=== PATIENT | male | born 1970 | race Caucasian/White ===

== ENCOUNTER 2016-10-05 23:00 | Emergency (ER) | payer BC ==
[2016-10-05 21:16] LABS: WBC (NOT ORDERED) (RFLEX) 0 (0-5)
[2016-10-05 21:26] LABS: BASOPHILS 1.1 %; BASOPHILS ABSOLUTE 0.11 10/3/uL (0.0-0.16); EOSINOPHILS 4.5 %; EOSINOPHILS ABSOLUTE 0.44 10/3/uL (0.0-0.53); ER CBC TAT 0 Hrs 12 Mins; HEMATOCRIT 34.7 % (40.0-51.0); HEMOGLOBIN 11.1 g/dL (13.6-17.8); IMMATURE GRANULOCYTES 0.2 %; IMMATURE GRANULOCYTES ABSOLUTE 0.02 10/3/uL (0.0-0.11); LYMPHOCYTES 44.6 %; LYMPHOCYTES ABSOLUTE 4.34 10/3/uL (0.67-4.30); MEAN CORPUSCULAR HEMOGLOB 27.3 pg (26.0-34.0); MEAN CORPUSCULAR VOLUME 85.5 fL (80-100); MONOCYTES 4.8 %; MONOCYTES ABSOLUTE 0.47 10/3/uL (0.21-1.20); NEUTROPHILS 44.8 %; NEUTROPHILS ABSOLUTE 4.36 10/3/uL (2.02-8.40); PLATELET COUNT 285 10/3/uL (150-400); RBC DISTRIBUTION WIDTH 14.2 % (12.0-16.0); RED CELL COUNT 4.06 10/6/uL (4.7-6.1); WHITE BLOOD CELLS 9.7 10/3/uL (4.5-10.5)
[2016-10-05 21:27] LABS: MANUAL DIFF NO %
[2016-10-05 21:28] LABS: ASCORBIC ACID (UR NOT ORDER) NEG (NEG); BILIRUBIN, URINE NEGATIVE (NEG); ER URINALYSIS TAT 0 Hrs 14 Mins; KETONE, URINE TRACE MG/DL (NEG); LEUKOCYTE ESTERASE(NOT OR NEG (NEG); NITRITE (URINE) NEG (NEG)
[2016-10-05 21:33] LABS: BUN (BLOOD UREA NITROGEN) 38 MG/DL (6-23); CALCIUM, SERUM 8.5 MG/DL (8.5-10.4); CHLORIDE, SERUM 97 MMOL/L (96-112); CO2 (CARBON DIOXIDE) 27 MMOL/L (24-34); CREATININE 1.41 MG/DL (0.70-1.30); GFR AFRICAN AMERICAN 68 ML/MIN (>=60); GFR NON AFRICAN AMERICAN 59 ML/MIN (>=60); GLUCOSE, SERUM 487 MG/DL (60-99); POTASSIUM, SERUM 4.6 MMOL/L (3.5-5.3); SODIUM, SERUM 133 MMOL/L (135-148)
[~2016-10-05 23:00] MED LIST: AMARYL2 PO; ASAB PO; CIP5 PO; COLCH6 PO; EFFEX37.5 PO; FESO4 PO; GLUCOSE TABLET PO; HUMALOG SC; HUMALOGPEN SC; IMOD PO; KLONO1 PO; LEVEMFLXPN SC; LEVEMIR; LEVEMIR PO; LEVEMIR SC; LEVSINTAB PO; LIOR10 PO; LOP25 PO; LOP50 PO; LORTAB 5 PO; LYRICA100 MG PO; NITROQUICK0.4 MG SL; NITROSTAT0.4 MG SL; NOVOLOG SC; NOVOLOGMIX SC; NOVOPEN SC; NYS500UDL PO; PLAVIX PO; PRAVAC PO; PRAVACHOL40 MG PO; PRIN2.5 PO; PRIN5 PO; PROTONIX PO; REG5 PO; SOMATAB PO; SUCR PO; TOPXL50 PO; VITD PO; ZANTAC300 MG PO; ZOFRAN4 PO
== END 2016-10-06 08:55 | disposition home or self-care (01) ==
LOC: ER 23:00
PROVIDERS: Emergency Medicine
DX: R10.9 Unspecified abdominal pain (principal); G89.29 Other chronic pain; F17.200 Nicotine dependence, unspecified, uncomplicated; I10 Essential (primary) hypertension; E11.9 Type 2 diabetes mellitus without complications; Z88.0 Allergy status to penicillin; Z91.018 Allergy to other foods; Z79.4 Long term (current) use of insulin; Z79.899 Other long term (current) drug therapy
CPT/HCPCS: 74176; 80048; 81001; 82962; 85025; 96374; 96375; 99284; A9270-GY; J1980; J2405

== ENCOUNTER 2016-11-05 18:16 | Inpatient (IN) | payer BC ==
--- NOTE | ~2016-11-05 | HP ---
History And Physical [place] [id number] [facility] [place]. [address] NAME: MIR PADILLA : 68 STATUS : ADM IN PAT#: [id number] AGE: 46 ADM/REG DATE : 11/05/16 MR#: [id number] REPORT SERV DATE: 11/06/16 DICTATED BY: GLORIA OCONNELL DATE: 11/05/16 REPORT STATUS : Draft TRANSCRIBED BY: MODSivakumar DATE: 11/05/16 DATE OF ADMISSION: 11/05/2016 CHIEF COMPLAINT: Intractable nausea and vomiting. HISTORY OF PRESENT ILLNESS: This is a 46-year-old male with a past medical history of type 1 diabetes, of which the patient states that his blood sugars have been greater than 400 for the past several days as well as has had intractable nausea and vomiting for three days and has developed some epigastric discomfort secondary to his vomiting. He denies any hematemesis, but does have some myalgias and chills, positive cough, intermittent shortness of breath, but denies chest pain. The patient states that he has been compliant with his diabetic medication. He recently moved up to this area. He is currently supposed to see a new primary care, Grisel Mendez, and scheduled to see this physician this week. Also, he is to follow up with hardboard coating machine operator, Wendy Marshall. The patient describes some mild dysuria, but has not had any urine output since being in the ER. He was seen in the ER by Dr. Lg Junior, ER physician, who has given the patient 2 L bolusing of IV fluid and has started on an insulin drip. Also, the patient has received some antiemetics. Upon arrival to the ER, the patient's blood sugar was noted to be 653 with signs of dehydration. REVIEW OF SYSTEMS: Please refer to HPI. PAST MEDICAL HISTORY: Type 1 diabetes, hepatitis C, pancreatitis, anxiety, depression, coronary artery disease, status post DE, cardiomyopathy with ejection fraction of 40%, renal stones, and diabetic neuropathy. PAST SURGICAL HISTORY: Lithotripsy and cholecystectomy. SOCIAL HISTORY: Positive tobacco abuse for approximately 45 years. Denies any alcohol or illicit drugs. His is currently at bedside. The patient uses a wheelchair at home for severe diabetic neuropathy and using a knee brace for his right lower extremity. FAMILY HISTORY: COPD and type 2 diabetes. ALLERGIES: TO PENICILLIN AND LEMON. HOME MEDICATIONS: Plavix 75 mg p.o. daily, glucagon p.r.n., ibuprofen p.r.n., Levemir 18 units subcu b.i.d., Humalog, sliding scale insulin, lisinopril 2.5 mg p.o. daily, metoprolol succinate 25 mg p.o. q.a.m., nitroglycerin sublingual, Pravachol 40 mg p.o. q.h.s., Zantac 300 mg p.o. q.a.m. PHYSICAL EXAMINATION: VITAL SIGNS: Temp of 98.7, blood pressure 100/62 with a pulse of 93, respiration of 19, and saturating 98% on room air. GENERAL: The patient is alert and oriented x3. HEENT: Pupils equal, round, and reactive to light. Extraocular muscles are intact. History And Physical [address] [address] NAME: MIR PADILLA : 68 STATUS : ADM IN [facility]#: [id number] AGE: 46 ADM/REG DATE : 11/05/16 MR#: [id number] REPORT SERV DATE: 11/06/16 DICTATED BY: GLORIA OCONNELL DATE: 11/05/16 REPORT STATUS : Draft TRANSCRIBED BY: PABLO DATE: 11/05/16 Anicteric sclerae. Dry mucous membranes. CARDIOVASCULAR: S1, S2. Regular rate and rhythm. No murmurs, rubs, or gallops. No JVD. RESPIRATORY: Clear to auscultation bilaterally with no wheezes or crackles. No signs of tachypnea. ABDOMEN: Positive bowel sounds. Soft. Mild tenderness to palpation in epigastric area. No rebound. No abdominal distention. EXTREMITIES: 2+ pulse, warm extremities. Knee brace to the right lower extremity. NEURO: Cranial nerves II through XII grossly intact. Moves all four extremities. Some limitation secondary to abrasion in the right lower extremity. IMAGING: Chest x-ray showing no acute infiltrate. LABORATORY DATA: ABG with a pH of 7.36, pCO2 of 41, pO2 of 80. Positive acetone. Sodium 128, potassium 5, chloride 87, bicarb of 26, BUN of 53, creatinine of 1.69 with a glucose of 653. Anion gap of 15. White count of 8.6, hemoglobin of 12.5 with a platelet count 158. Influenza swab is negative. ASSESSMENT AND PLAN: 1. Diabetic ketoacidosis. 2. Intractable nausea and vomiting. 3. Pseudohyponatremia. 4. Hypomagnesemia. 5. The patient will be admitted to ICU due to no beds in IMCU and will be admitted for IMCU overflow. He will continue with insulin drip as well as serial labs and electrolyte management considering the positive ketones, positive anion gap with a blood glucose greater than 600, I recommend the patient to be in IMCU/ICU setting. This has been discussed with Dr. Stovall, Critical Care on-call, who will accept the patient overnight into Critical Care/ICU and manage. VIDHI/MODL Gloria Oconnell M.D. / [id number] CC: Madelin Stovall M.D.
--- NOTE | ~2016-11-05 | DS ---
Discharge Summary [facility] [address] [facility] [place]. [address] NAME: MIR PADILLA : 68 STATUS : DIS IN PAT#: [id number] AGE: 46 ADM/REG DATE : 11/05/16 MR#: [id number] REPORT SERV DATE: 11/10/16 DICTATED BY: LARRY GALLOWAY DATE: 11/09/16 REPORT STATUS : Draft TRANSCRIBED BY: MODL DATE: 11/09/16 ADMISSION DATE: 11/05/2016 DISCHARGE DATE: 11/09/2016 The patient is a 46-year-old male with a history of type 1 diabetes, hepatitis C, pancreatitis, heart failure with reduced EF, and diabetic neuropathy who presented to the emergency room with a complaint of intractable nausea and vomiting. For further details please refer to H and P dictated by Dr. Gomez on 11/06/2016. HOSPITAL COURSE: Upon presentation to the emergency room the patient was diagnosed and admitted for DKA. The patient was sent to the ICU for further management. The patient was in the ICU over night. The patient was started on an insulin drip, also blood glucose controlled to normal limits. The patient was transferred to the regular floor. On the regular floor, the patient remained hemodynamically stable; however, the high blood pressure remained elevated. Upon review of his chart, the patient meet criteria for a hyperosmolar hyperglycemic state. Based on his presenting pH, presenting bicarb, and his glucose level, ketones were not ordered by emergency room physicians. While in the ICU the patient was taken off insulin drip, placed on insulin regimen. While on the floor his insulin regimen has been titrated with good control of his hyperglycemia. Also upon my evaluation, yesterday the patient complained of posttussive emesis, stating that he has several episodes of paroxysms of cough and the patient is vomiting, this was concerning for pertussis. Sputum sample was obtained; however, no significant finding was noted. Chest x-ray, given his significant smoking history the patient reported a smoking history of over 60-pack year. CT scan was obtained to evaluate for any malignancy per guidelines. The patient's CT came back with no significant concern. Also upon my interview, the patient reported that while at home he has poor diet secondary to his inability to afford food. However, the patient is currently stable, his presenting concerns have resolved. This morning patient was noted to be tachycardic likely due to volume depletion, the patient will be placed on IV fluids. Given resolution of his presenting symptoms the patient will be discharged home to follow up with primary care physician. Plan has been discussed with the patient, who voices understanding and is agreeable with this plan. DISCHARGE DIAGNOSES: 1. Hyperosmolar hyperglycemic state. 2. Diabetes type 1. 3. Hypertension. 4. Acute kidney injury. 5. Posttussive emesis. 6. Diabetic neuropathy. 7. Thrombocytosis. 8. Leukocytosis. DISCHARGE PHYSICAL EXAMINATION: GENERAL: The patient lying in bed, in no acute distress. Appears stated age. HEENT: Normocephalic and atraumatic. Extraocular motors intact. Moist oral mucosa. Anicteric sclerae. No conjunctival injection. Pupils are reactive to light and Discharge Summary [address] [place]. [address] NAME: MIR PADILLA : 68 STATUS : DIS IN [facility]#: [id number] AGE: 46 ADM/REG DATE : 11/05/16 MR#: [id number] REPORT SERV DATE: 11/10/16 DICTATED BY: LARRY GALLOWAY DATE: 11/09/16 REPORT STATUS : Draft TRANSCRIBED BY: PABLO DATE: 11/09/16 accommodation. NECK: Trachea midline and symmetric. No JVD. No thyromegaly. No lymphadenopathy noted. CHEST: Nontender to palpation. CARDIOVASCULAR: Tachy. Regular rhythm. No murmurs, rubs, or gallops. LUNGS: Clear to auscultation bilaterally. The patient had normal respiratory effort. ABDOMEN: Soft, flat, nontender, and nondistended. EXTREMITIES: No cyanosis, no clubbing, no edema. NEURO: Alert and oriented x3. Of note, the patient did appear somewhat emaciated. IMAGING: CT chest without contrast. Impression: Segmental left lower lobe consolidation consistent with pneumonia or aspiration in proper clinical setting. Mild involvement suspected in the posterior basal left and potentially lateral basal right lower lobe. DISPOSITION: The patient will be discharged home to follow with primary care physician. DIET: Diabetic diet. ACTIVITY: As tolerated. Greater than 30 minutes were spent providing counseling and coordinating discharge, dictation of note, medication reconciliation, writing prescriptions. JIMMY Larry Galloway MD / [id number] CC: Larry Galloway MD
[2016-11-05 18:19] LABS: INFLUENZA A SCREEN NEGATIVE (NEGATIVE); INFLUENZA B SCREEN NEGATIVE (NEGATIVE)
[2016-11-05 18:34] LABS: BASOPHILS 0.6 %; BASOPHILS ABSOLUTE 0.05 10/3/uL (0.0-0.16); EOSINOPHILS 0.9 %; EOSINOPHILS ABSOLUTE 0.08 10/3/uL (0.0-0.53); HEMATOCRIT 37.7 % (40.0-51.0); HEMOGLOBIN 12.5 g/dL (13.6-17.8); IMMATURE GRANULOCYTES 0.2 %; IMMATURE GRANULOCYTES ABSOLUTE 0.02 10/3/uL (0.0-0.11); LYMPHOCYTES 35.5 %; LYMPHOCYTES ABSOLUTE 3.06 10/3/uL (0.67-4.30); MEAN CORPUS HGB CONC 33.2 g/dL (32.0-36.0); MEAN CORPUSCULAR HEMOGLOB 28.3 pg (26.0-34.0); MEAN CORPUSCULAR VOLUME 85.5 fL (80-100); MEAN PLATELET VOLUME 9.1 fL (9.2-13.0); MONOCYTES 6.1 %; MONOCYTES ABSOLUTE 0.53 10/3/uL (0.21-1.20); NEUTROPHILS 56.7 %; NEUTROPHILS ABSOLUTE 4.88 10/3/uL (2.02-8.40); RBC DISTRIBUTION WIDTH 14.3 % (12.0-16.0); RED CELL COUNT 4.41 10/6/uL (4.7-6.1); WHITE BLOOD CELLS 8.6 10/3/uL (4.5-10.5)
[2016-11-05 18:37] LABS: MANUAL DIFF NO %; PLATELET COUNT 158 10/3/uL (150-400)
[2016-11-05 18:41] LABS: ACETONE SMALL
[2016-11-05 18:44] LABS: INTERNATIONAL NORMAL RATI 0.9 UNITS (-); PARTIAL THROMBO TIME 24.5 SEC (22.5-37.2); PROTIME (NOT ORD) 12.2 SEC (12.0-14.5)
[2016-11-05 18:52] LABS: CALCIUM, SERUM 9.1 MG/DL (8.5-10.4); CHEST PAIN PROFILE TAT 0 Hrs 22 Mins; CO2 (CARBON DIOXIDE) 26 MMOL/L (24-34); CREATININE 1.69 MG/DL (0.70-1.30); GFR AFRICAN AMERICAN 55 ML/MIN (>=60); GFR NON AFRICAN AMERICAN 47 ML/MIN (>=60); SODIUM, SERUM 128 MMOL/L (135-148); TROPONIN I <0.02 NG/ML (<0.05)
[2016-11-05 18:53] LABS: BUN (BLOOD UREA NITROGEN) 53 MG/DL (6-23); CHLORIDE, SERUM 87 MMOL/L (96-112); GLUCOSE, SERUM 653 MG/DL (60-99)
[2016-11-05] MEDS ORDERED: HUMALOG SC (19:31)
[2016-11-05] MEDS ORDERED: LEVEMIR SC (19:31)
[2016-11-05] MEDS ORDERED: TOPXL25 PO (19:31)
[2016-11-05] MEDS ORDERED: ZANTAC300 MG PO (19:32)
[2016-11-05] MEDS ORDERED: PLAVIX PO (19:32)
[2016-11-05] MEDS ORDERED: PRAVACHOL40 MG PO (19:33)
[2016-11-05] MEDS ORDERED: NITROSTAT0.4 MG SL (19:33)
[2016-11-05] MEDS ORDERED: GLUCAGON IM (19:34)
[2016-11-05] MEDS ORDERED: IBU-200200 MG PO (19:35)
[2016-11-05] MEDS ORDERED: PRIN2.5 PO (19:35)
[2016-11-05 20:54] LABS: ALLENS TEST Pos; BE (BASE EXCESS) -2.4 MEQ/L (0 +/- 2.5); CARBOXYHEMOGLOBIN 3.1 % (0-3); HCO3 (ACTUAL BICARBONATE) 22.9 MEQ/L (23-27); HEMOBLOGIN CONTENT 12.5 G/DL (14-18); INSTRUMENT SERIAL # 8087; METHEMOGLOBIN 0.1 % (0-3); O2 CONTENT 16.1 VOL% (18-24); OPERATOR ID 17589; PCO2 (CO2 TENSION) 41 MMHG (35-45); PO2 (O2 TENSION) 80 MMHG (79-93); SAMPLE Arterial; pH 7.36 (7.37-7.43)
[2016-11-06 03:42] LABS: BASOPHILS 0.4 %; BASOPHILS ABSOLUTE 0.05 10/3/uL (0.0-0.16); EOSINOPHILS 1.8 %; EOSINOPHILS ABSOLUTE 0.21 10/3/uL (0.0-0.53); HEMATOCRIT 36.4 % (40.0-51.0); HEMOGLOBIN 12.1 g/dL (13.6-17.8); IMMATURE GRANULOCYTES 0.2 %; IMMATURE GRANULOCYTES ABSOLUTE 0.02 10/3/uL (0.0-0.11); LYMPHOCYTES 41.7 %; MANUAL DIFF NO %; MEAN CORPUS HGB CONC 33.2 g/dL (32.0-36.0); MEAN CORPUSCULAR HEMOGLOB 27.9 pg (26.0-34.0); MEAN CORPUSCULAR VOLUME 84.1 fL (80-100); MONOCYTES 6.5 %; MONOCYTES ABSOLUTE 0.76 10/3/uL (0.21-1.20); NEUTROPHILS 49.4 %; NEUTROPHILS ABSOLUTE 5.81 10/3/uL (2.02-8.40); PLATELET COUNT 170 10/3/uL (150-400); RBC DISTRIBUTION WIDTH 14.2 % (12.0-16.0); RED CELL COUNT 4.33 10/6/uL (4.7-6.1); WHITE BLOOD CELLS 11.8 10/3/uL (4.5-10.5)
[2016-11-06 03:59] LABS: ALBUMIN 2.9 G/DL (3.5-5.0); ALKALINE PHOSPHATASE 125 U/L (45-117); CALCIUM, SERUM 8.6 MG/DL (8.5-10.4); CO2 (CARBON DIOXIDE) 30 MMOL/L (24-34); CPK 44 U/L (0-200); SGOT(AST) 56 U/L (5-40); SGPT(ALT) 55 U/L (5-65); TOTAL BILIRUBIN 0.3 MG/DL (0-1.2); TOTAL PROTEIN 6.4 G/DL (6.0-8.5); TROPONIN I <0.02 NG/ML (<0.05)
[2016-11-06 04:02] LABS: ACETAMINOPHEN LEVEL (TYLENOL) < 2.0 MCG/ML (10.0-20.0); ALCOHOL < 10 MG/DL (0); BUN (BLOOD UREA NITROGEN) 38 MG/DL (6-23); CHLORIDE, SERUM 99 MMOL/L (96-112); CHOLESTEROL 112 MG/DL (< 200); CK-MB 0.9 NG/ML; CREATININE 1.12 MG/DL (0.70-1.30); DIRECT BILIRUBIN < 0.1 MG/DL (0.0-0.4); GFR AFRICAN AMERICAN 90 ML/MIN (>=60); GFR NON AFRICAN AMERICAN 78 ML/MIN (>=60); GLUCOSE, SERUM 81 MG/DL (60-99); HDL CHOLESTEROL 55 MG/DL (> 39); INDIRECT BILIRUBIN(NOT ORDER) 0.2 MG/DL (0.1-0.9); LDL CHOLESTEROL 14 MG/DL (< 130); NON-HDL CHOLESTEROL 57 MG/DL (< 160); POTASSIUM, SERUM 3.4 MMOL/L (3.5-5.3); SALICYLATE < 1.7 MG/DL (-); SODIUM, SERUM 135 MMOL/L (135-148); TRIGLYCERIDE 219 MG/DL (< 150)
[2016-11-06 04:03] LABS: ASCORBIC ACID (UR NOT ORDER) NEG (NEG); BILIRUBIN, URINE NEGATIVE (NEG); KETONE, URINE TRACE MG/DL (NEG); LEUKOCYTE ESTERASE(NOT OR NEG (NEG); WBC (NOT ORDERED) (RFLEX) < 1 (0-5)
[2016-11-06 04:32] LABS: CREATININE (RANDOM URINE) 45.9 MG/DL; MICROALBUMIN, RANDOM URINE 32.3 MG/DL; MICROALBUMIN/CREATININE RATIO 703 MCG/MG (<30)
[2016-11-06 05:04] LABS: AMPHETAMINES (NOT ORD) NEG (NEG); BENZODIAZEPINES (NOT ORD) NEG (NEG); CANNABINOIDS (THC) POS (NEG); COCAINE (NOT ORDERED) NEG (NEG); PHENCYCLIDINE(PCP) NEG (NEG)
[2016-11-06 05:05] LABS: BARBITURATES (NOT ORDERED NEG (NEG); OPIATES NEG (NEG); TRICYCLICS NEG (NEG)
[2016-11-06 06:14] LABS: PHOSPHORUS, SERUM 2.6 MG/DL (2.5-4.5)
[2016-11-06 10:43] LABS: CALCIUM, SERUM 8.5 MG/DL (8.5-10.4); CHLORIDE, SERUM 98 MMOL/L (96-112); CO2 (CARBON DIOXIDE) 26 MMOL/L (24-34); CPK 45 U/L (0-200); CREATININE 1.24 MG/DL (0.70-1.30); GFR AFRICAN AMERICAN 80 ML/MIN (>=60); GFR NON AFRICAN AMERICAN 69 ML/MIN (>=60); PHOSPHORUS, SERUM 2.1 MG/DL (2.5-4.5); SODIUM, SERUM 135 MMOL/L (135-148); TROPONIN I <0.02 NG/ML (<0.05)
[2016-11-06 10:44] LABS: BUN (BLOOD UREA NITROGEN) 33 MG/DL (6-23); CK-MB 0.6 NG/ML; GLUCOSE, SERUM 277 MG/DL (60-99); POTASSIUM, SERUM 4.5 MMOL/L (3.5-5.3)
[2016-11-06 18:20] LABS: BASOPHILS 0.2 %; BASOPHILS ABSOLUTE 0.02 10/3/uL (0.0-0.16); EOSINOPHILS 0.4 %; EOSINOPHILS ABSOLUTE 0.04 10/3/uL (0.0-0.53); HEMATOCRIT 33.8 % (40.0-51.0); HEMOGLOBIN 10.8 g/dL (13.6-17.8); IMMATURE GRANULOCYTES 0.2 %; IMMATURE GRANULOCYTES ABSOLUTE 0.02 10/3/uL (0.0-0.11); LYMPHOCYTES 14.9 %; LYMPHOCYTES ABSOLUTE 1.56 10/3/uL (0.67-4.30); MANUAL DIFF NO %; MEAN CORPUSCULAR HEMOGLOB 27.4 pg (26.0-34.0); MEAN CORPUSCULAR VOLUME 85.8 fL (80-100); MEAN PLATELET VOLUME 8.8 fL (9.2-13.0); MONOCYTES ABSOLUTE 0.42 10/3/uL (0.21-1.20); NEUTROPHILS 80.3 %; NEUTROPHILS ABSOLUTE 8.43 10/3/uL (2.02-8.40); PLATELET COUNT 147 10/3/uL (150-400); RBC DISTRIBUTION WIDTH 14.4 % (12.0-16.0); RED CELL COUNT 3.94 10/6/uL (4.7-6.1); WHITE BLOOD CELLS 10.5 10/3/uL (4.5-10.5)
[2016-11-06 18:36] LABS: CALCIUM, SERUM 8.1 MG/DL (8.5-10.4); CHLORIDE, SERUM 97 MMOL/L (96-112); CO2 (CARBON DIOXIDE) 26 MMOL/L (24-34); CREATININE 1.51 MG/DL (0.70-1.30); GFR AFRICAN AMERICAN 63 ML/MIN (>=60); GFR NON AFRICAN AMERICAN 54 ML/MIN (>=60); GLUCOSE, SERUM 242 MG/DL (60-99); PHOSPHORUS, SERUM 2.6 MG/DL (2.5-4.5); POTASSIUM, SERUM 3.8 MMOL/L (3.5-5.3); SODIUM, SERUM 135 MMOL/L (135-148)
[2016-11-06 18:40] LABS: BUN (BLOOD UREA NITROGEN) 27 MG/DL (6-23)
[2016-11-07 06:36] LABS: BASOPHILS 0.2 %; BASOPHILS ABSOLUTE 0.02 10/3/uL (0.0-0.16); EOSINOPHILS 0.6 %; EOSINOPHILS ABSOLUTE 0.07 10/3/uL (0.0-0.53); HEMATOCRIT 32.7 % (40.0-51.0); HEMOGLOBIN 10.9 g/dL (13.6-17.8); IMMATURE GRANULOCYTES 0.2 %; IMMATURE GRANULOCYTES ABSOLUTE 0.02 10/3/uL (0.0-0.11); LYMPHOCYTES 28.3 %; LYMPHOCYTES ABSOLUTE 3.31 10/3/uL (0.67-4.30); MEAN CORPUS HGB CONC 33.3 g/dL (32.0-36.0); MEAN CORPUSCULAR HEMOGLOB 28.3 pg (26.0-34.0); MEAN CORPUSCULAR VOLUME 84.9 fL (80-100); MEAN PLATELET VOLUME 8.9 fL (9.2-13.0); MONOCYTES 4.4 %; MONOCYTES ABSOLUTE 0.52 10/3/uL (0.21-1.20); NEUTROPHILS 66.3 %; NEUTROPHILS ABSOLUTE 7.76 10/3/uL (2.02-8.40); PLATELET COUNT 149 10/3/uL (150-400); RBC DISTRIBUTION WIDTH 14.3 % (12.0-16.0); RED CELL COUNT 3.85 10/6/uL (4.7-6.1); WHITE BLOOD CELLS 11.7 10/3/uL (4.5-10.5)
[2016-11-07 06:38] LABS: MANUAL DIFF NO %
[2016-11-07 06:54] LABS: CALCIUM, SERUM 8.8 MG/DL (8.5-10.4); CHLORIDE, SERUM 99 MMOL/L (96-112); CREATININE 1.05 MG/DL (0.70-1.30); FREE T4 1.49 NG/DL (0.76-1.46); GFR AFRICAN AMERICAN 98 ML/MIN (>=60); GFR NON AFRICAN AMERICAN 84 ML/MIN (>=60); PHOSPHORUS, SERUM 2.6 MG/DL (2.5-4.5); POTASSIUM, SERUM 4.2 MMOL/L (3.5-5.3); SODIUM, SERUM 138 MMOL/L (135-148)
[2016-11-07 06:55] LABS: BUN (BLOOD UREA NITROGEN) 19 MG/DL (6-23); CO2 (CARBON DIOXIDE) 32 MMOL/L (24-34); GLUCOSE, SERUM 169 MG/DL (60-99); ULTRASENSITIVE TSH 0.521 MCIU/ML (0.358-3.740)
[2016-11-08 06:21] LABS: BASOPHILS 0.3 %; BASOPHILS ABSOLUTE 0.03 10/3/uL (0.0-0.16); EOSINOPHILS 2.3 %; HEMATOCRIT 35.2 % (40.0-51.0); HEMOGLOBIN 11.4 g/dL (13.6-17.8); IMMATURE GRANULOCYTES 0.1 %; IMMATURE GRANULOCYTES ABSOLUTE 0.01 10/3/uL (0.0-0.11); LYMPHOCYTES 28.4 %; LYMPHOCYTES ABSOLUTE 2.49 10/3/uL (0.67-4.30); MEAN CORPUS HGB CONC 32.4 g/dL (32.0-36.0); MEAN CORPUSCULAR HEMOGLOB 27.7 pg (26.0-34.0); MEAN CORPUSCULAR VOLUME 85.6 fL (80-100); MEAN PLATELET VOLUME 8.7 fL (9.2-13.0); MONOCYTES 4.8 %; MONOCYTES ABSOLUTE 0.42 10/3/uL (0.21-1.20); NEUTROPHILS 64.1 %; NEUTROPHILS ABSOLUTE 5.62 10/3/uL (2.02-8.40); PLATELET COUNT 123 10/3/uL (150-400); RBC DISTRIBUTION WIDTH 14.2 % (12.0-16.0); RED CELL COUNT 4.11 10/6/uL (4.7-6.1); WHITE BLOOD CELLS 8.8 10/3/uL (4.5-10.5)
[2016-11-08 06:24] LABS: MANUAL DIFF NO %
[2016-11-08 06:39] LABS: A/G RATIO 0.7 (0.7-1.9); ALBUMIN 2.7 G/DL (3.5-5.0); ALKALINE PHOSPHATASE 117 U/L (45-117); BUN (BLOOD UREA NITROGEN) 14 MG/DL (6-23); CALCIUM, SERUM 8.7 MG/DL (8.5-10.4); CHLORIDE, SERUM 99 MMOL/L (96-112); CO2 (CARBON DIOXIDE) 31 MMOL/L (24-34); CREATININE 0.98 MG/DL (0.70-1.30); GFR AFRICAN AMERICAN 106 ML/MIN (>=60); GFR NON AFRICAN AMERICAN 91 ML/MIN (>=60); GLOBULIN 3.8 G/DL (2.5-4.1); GLUCOSE, SERUM 111 MG/DL (60-99); POTASSIUM, SERUM 4.1 MMOL/L (3.5-5.3); SGOT(AST) 34 U/L (5-40); SGPT(ALT) 35 U/L (5-65); SODIUM, SERUM 137 MMOL/L (135-148); TOTAL BILIRUBIN 0.4 MG/DL (0-1.2); TOTAL PROTEIN 6.5 G/DL (6.0-8.5)
[2016-11-09 05:19] LABS: BASOPHILS 0.4 %; BASOPHILS ABSOLUTE 0.03 10/3/uL (0.0-0.16); EOSINOPHILS 3.4 %; EOSINOPHILS ABSOLUTE 0.28 10/3/uL (0.0-0.53); HEMATOCRIT 34.7 % (40.0-51.0); HEMOGLOBIN 11.3 g/dL (13.6-17.8); IMMATURE GRANULOCYTES 0.2 %; IMMATURE GRANULOCYTES ABSOLUTE 0.02 10/3/uL (0.0-0.11); LYMPHOCYTES 38.4 %; LYMPHOCYTES ABSOLUTE 3.12 10/3/uL (0.67-4.30); MEAN CORPUS HGB CONC 32.6 g/dL (32.0-36.0); MEAN CORPUSCULAR HEMOGLOB 27.9 pg (26.0-34.0); MEAN CORPUSCULAR VOLUME 85.7 fL (80-100); MEAN PLATELET VOLUME 9.7 fL (9.2-13.0); MONOCYTES 6.4 %; MONOCYTES ABSOLUTE 0.52 10/3/uL (0.21-1.20); NEUTROPHILS 51.2 %; NEUTROPHILS ABSOLUTE 4.16 10/3/uL (2.02-8.40); PLATELET COUNT 136 10/3/uL (150-400); RBC DISTRIBUTION WIDTH 14.4 % (12.0-16.0); RED CELL COUNT 4.05 10/6/uL (4.7-6.1); WHITE BLOOD CELLS 8.1 10/3/uL (4.5-10.5)
[2016-11-09 05:38] LABS: A/G RATIO 0.7 (0.7-1.9); ALBUMIN 2.6 G/DL (3.5-5.0); ALKALINE PHOSPHATASE 113 U/L (45-117); BUN (BLOOD UREA NITROGEN) 16 MG/DL (6-23); CALCIUM, SERUM 9.2 MG/DL (8.5-10.4); CHLORIDE, SERUM 98 MMOL/L (96-112); CO2 (CARBON DIOXIDE) 31 MMOL/L (24-34); CREATININE 0.93 MG/DL (0.70-1.30); GFR AFRICAN AMERICAN 113 ML/MIN (>=60); GFR NON AFRICAN AMERICAN 97 ML/MIN (>=60); GLOBULIN 3.9 G/DL (2.5-4.1); GLUCOSE, SERUM 110 MG/DL (60-99); POTASSIUM, SERUM 3.8 MMOL/L (3.5-5.3); SGOT(AST) 45 U/L (5-40); SGPT(ALT) 37 U/L (5-65); SODIUM, SERUM 138 MMOL/L (135-148); TOTAL BILIRUBIN 0.4 MG/DL (0-1.2); TOTAL PROTEIN 6.5 G/DL (6.0-8.5)
[2016-11-09 05:48] LABS: MANUAL DIFF NO %
[2016-11-09] MEDS ORDERED: LEVEMFLXPN SC (11:02)
[2016-11-09] MEDS ORDERED: NOVOPEN SC (11:03)
[2016-11-09] MEDS ORDERED: ZOFRAN4 PO (11:03)
== END 2016-11-09 21:24 | disposition home or self-care (01) | DRG 637 ==
LOC: ER 18:16 → MIC 23:53 → 2SO 11-06 18:56
PROVIDERS: Hospitalist; Internal Medicine Pulmonary Disease; Physician Assistant
DX: E13.10 Other specified diabetes mellitus with ketoacidosis without coma (principal); E43 Unspecified severe protein-calorie malnutrition; N17.9 Acute kidney failure, unspecified; I42.9 Cardiomyopathy, unspecified; E83.42 Hypomagnesemia; I50.9 Heart failure, unspecified; E86.9 Volume depletion, unspecified; E87.1 Hypo-osmolality and hyponatremia; B19.20 Unspecified viral hepatitis C without hepatic coma; F41.9 Anxiety disorder, unspecified; F32.9 Major depressive disorder, single episode, unspecified; I25.10 Atherosclerotic heart disease of native coronary artery without angina pectoris; E10.21 Type 1 diabetes mellitus with diabetic nephropathy; N20.0 Calculus of kidney; D47.3 Essential (hemorrhagic) thrombocythemia; I25.2 Old myocardial infarction; Z98.890 Other specified postprocedural states; Z87.891 Personal history of nicotine dependence; Z83.3 Family history of diabetes mellitus; Z82.5 Family history of asthma and other chronic lower respiratory diseases; Z88.0 Allergy status to penicillin; Z91.018 Allergy to other foods
CPT/HCPCS: 36600; 71010; 71250; 74000; 80048; 80053; 80061; 80076; 80305; 80307; 81001; 82009; 82043; 82150; 82272; 82550; 82553; 82805; 82962; 83036; 83690; 83735; 84100; 84439; 84443; 84481; 84484; 85025; 85610; 85730; 87040; 87070; 87077; 87186; 87205; 87641; 87804; 93005; 94640; 96374; 99285; A9270-GY; C9113; J2405

== ENCOUNTER 2016-12-22 17:17 | Emergency (ER) | payer BC ==
[2016-12-22 17:09] LABS: BASOPHILS 0.4 %; BASOPHILS ABSOLUTE 0.07 10/3/uL (0.0-0.16); EOSINOPHILS 2.7 %; EOSINOPHILS ABSOLUTE 0.46 10/3/uL (0.0-0.53); HEMATOCRIT 32.9 % (40.0-51.0); HEMOGLOBIN 10.8 g/dL (13.6-17.8); IMMATURE GRANULOCYTES 0.3 %; IMMATURE GRANULOCYTES ABSOLUTE 0.05 10/3/uL (0.0-0.11); LYMPHOCYTES 15.4 %; LYMPHOCYTES ABSOLUTE 2.64 10/3/uL (0.67-4.30); MEAN CORPUS HGB CONC 32.8 g/dL (32.0-36.0); MEAN CORPUSCULAR HEMOGLOB 27.5 pg (26.0-34.0); MEAN CORPUSCULAR VOLUME 83.7 fL (80-100); MEAN PLATELET VOLUME 8.5 fL (9.2-13.0); MONOCYTES 4.3 %; MONOCYTES ABSOLUTE 0.73 10/3/uL (0.21-1.20); NEUTROPHILS 76.9 %; NEUTROPHILS ABSOLUTE 13.18 10/3/uL (2.02-8.40); RBC DISTRIBUTION WIDTH 14.4 % (12.0-16.0); RED CELL COUNT 3.93 10/6/uL (4.7-6.1)
[2016-12-22 17:13] LABS: ER CBC TAT 0 Hrs 08 Mins; MANUAL DIFF NO %; PLATELET COUNT 235 10/3/uL (150-400); WHITE BLOOD CELLS 17.1 10/3/uL (4.5-10.5)
[~2016-12-22 17:17] MED LIST changes: +GLUCAGON IM; +IBU-200200 MG PO; +TOPXL25 PO
[2016-12-22 17:27] LABS: ALKALINE PHOSPHATASE 118 U/L (45-117); CALCIUM, SERUM 8.8 MG/DL (8.5-10.4); CHLORIDE, SERUM 100 MMOL/L (96-112); CO2 (CARBON DIOXIDE) 28 MMOL/L (24-34); CREATININE 1.37 MG/DL (0.70-1.30); GFR AFRICAN AMERICAN 71 ML/MIN (>=60); GFR NON AFRICAN AMERICAN 61 ML/MIN (>=60); GLOBULIN 3.3 G/DL (2.5-4.1); POTASSIUM, SERUM 3.8 MMOL/L (3.5-5.3); SGOT(AST) 76 U/L (5-40); SGPT(ALT) 85 U/L (5-65); SODIUM, SERUM 133 MMOL/L (135-148); TOTAL BILIRUBIN 0.2 MG/DL (0-1.2); TOTAL PROTEIN 6.7 G/DL (6.0-8.5)
[2016-12-22 17:28] LABS: ALBUMIN 3.4 G/DL (3.5-5.0); BUN (BLOOD UREA NITROGEN) 27 MG/DL (6-23); GLUCOSE, SERUM 443 MG/DL (60-99)
[2016-12-22 19:32] LABS: ASCORBIC ACID (UR NOT ORDER) NEG (NEG); BILIRUBIN, URINE NEGATIVE (NEG); ER URINALYSIS TAT 0 Hrs 07 Mins; KETONE, URINE NEGATIVE (NEG); LEUKOCYTE ESTERASE(NOT OR NEG (NEG); NITRITE (URINE) NEG (NEG); WBC (NOT ORDERED) (RFLEX) < 1 (0-5)
[2016-12-22 20:01] LABS: ACETONE NEG
== END 2016-12-22 22:01 | disposition home or self-care (01) ==
LOC: ER 17:17
PROVIDERS: Physician Assistant
DX: E10.9 Type 1 diabetes mellitus without complications (principal); Z88.0 Allergy status to penicillin; Z91.040 Latex allergy status; Z79.899 Other long term (current) drug therapy; Z79.4 Long term (current) use of insulin
CPT/HCPCS: 71020; 80053; 81001; 82009; 82962; 85025; 96374; 99285; A9270-GY